=== PATIENT | male | born 1940 | race Two or more races ===

== ENCOUNTER 2019-05-09 23:20 | Emergency (ER) | payer SELFPAY ==
--- NOTE | 2019-05-10 00:17 | PDOC ---
History of Present Illness - General Chief Complaint: Altered Mental Status Stated Complaint: MEDICAL EVALUATION Time Seen by Provider: 05/09/19 23:32 - History of Present Illness Initial Comments: This 78-year-old man with a history of dementia is brought in by ambulance from [place] where he was observed by police while sitting on sidewalk disoriented but in no acute distress. Police contacted family through identification on the patient and was told that he had been missing since 3:30 PM today from [place]. Upon presentation here in the emergency room, the patient was awake and verbal in no acute distress. He is oriented to person only but has no complaints. Specifically, he denies pain, shortness of breath. Family was contacted and they confirmed that the patient was attending a concert in [facility] with his . According to the , she lost track of where he was while they were in the lobby. She was able to contact him by cell phone and he told her that he was returning home (patient lives in the [place]). When she returned home and did not find him she recontacted him and realized that he had traveled farther. According to the and daughter, the patient has had previous episodes of getting lost however this is the longest time and farthest distance that he has been away. Since is ill (stating that she will be undergoing chemotherapy soon) efforts may be directed towards placement for this patient. Review of Systems - Review of Systems Able to Perform ROS?: No (dementia) *Physical Exam - Physical Exam GENERAL: Elderly man, awake and responsive, oriented to person only; pleasant and in no acute distress HEAD: Normal with no signs of trauma. EYES: PERRLA, EOMI, sclera anicteric, conjunctiva erythematous, left greater than right without discharge or crusting. ENT: Ears normal, nares patent, oropharynx clear without exudates. Moist mucous membranes. NECK: Normal range of motion, supple without lymphadenopathy, JVD, or masses. LUNGS: Breath sounds equal, clear to auscultation bilaterally. No wheezes, and no crackles. HEART:Regular rate and rhythm, normal S1 and S2 without murmur, rub or gallop. ABDOMEN:.normal bowel sounds No guarding,tenderness or rebound.No masses No distention. EXTREMITIES: Normal range of motion, no edema. No clubbing or cyanosis. No erythema, or tenderness. NEUROLOGICAL: Cranial nerves II through XII grossly intact. Normal speech. No focal neurological deficits. SKIN: Warm, Dry, normal turgor, no rashes or lesions noted. Medical Decision Making - Medical Decision Making As noted above, this elderly man was transported to the ER here after being seen disoriented on the street in [place]; no complaints or injuries evident. Family was contacted and patient was last seen at approximately 3:30 PM in [place]. Exam as noted without evidence of injury or acute pathologic process. Patient has bilateral erythematous conjunctiva but according to the patient's , the patient has had this chronically and "takes drops for it". Patient was discharged in the company of his and daughter with plan to follow-up with the patient's doctor tomorrow. Efforts will be made for either 24-hour caretakers or placement according to the family. They should return to the ER if patient develops any significant pain, shortness of breath or other acute symptoms Discharge - Discharge Information Problems reviewed: Yes Clinical Impression/Diagnosis: Dementia Qualifiers: Dementia type: unspecified type Dementia behavioral disturbance: without behavioral disturbance Qualified Code(s): F03.90 - Unspecified dementia without behavioral disturbance Condition: Stable Disposition: HOME - Follow up/Referral - Patient Discharge Instructions Additional Instructions: continue medications as prescribed contact his general doctor tomorrow regarding today's incident and followup as arranged return to ER as needed for any new severe symptoms - Post Discharge Activity
[2019-05-10 00:58] VITALS: BP 115/61; PULSE 84; TEMP 98; BMI 31.4
== END 2019-05-10 00:58 | disposition home or self-care (01) ==
LOC: FER 23:20
DX: F03.90 Unspecified dementia, unspecified severity, without behavioral disturbance, psychotic disturbance, mood disturbance, and anxiety (principal)
CPT/HCPCS: 99283-25